=== PATIENT | female | born 1950 | race African-American/Black ===

== ENCOUNTER 2023-10-30 07:39 | Observation (INO) ==
[2023-10-30] MEDS ORDERED: Rocuronium 50 mg VIAL 10 mg/ml 5 ml VIAL (50 mg) ONE (08:33)
[2023-10-30] MEDS ORDERED: Phenylephrine IV 10 MG/ML 1 ml VIAL ONE (08:34)
[2023-10-30] MEDS ORDERED: Dexamethasone IV 4 MG/ML VIAL 1 ml VIAL ONE (08:34)
[2023-10-30] MEDS ORDERED: Lidocaine 2% PF 5 ML VIAL ONE (08:34)
[2023-10-30] MEDS ORDERED: Sterile Water for Inj 10 ML ONE (08:34)
[2023-10-30] MEDS ORDERED: Ondansetron 4 mg VIAL 2 MG/ML 2 ml VIAL ONE (08:34)
[2023-10-30] MEDS ORDERED: Midazolam 2 mg/2 ml VIAL 1 mg/ml 2 ml VIAL (2 mg) ONE ×2 (08:34→09:56)
[2023-10-30] MEDS ORDERED: Acetaminophen IV 1 GM/100ML 1,000 MG/100 ML BAG IV ONE (08:34)
[2023-10-30] MEDS ORDERED: fentaNYL 100 mcg/2 ml 50 MCG/ML VIAL ONE (08:34)
[2023-10-30] MEDS ORDERED: ceFAZolin 2 GM PREMIX 2 GM/50 ML BAG ONE (08:57)
[2023-10-30] MEDS ORDERED: Tranexamic Acid 1 GM/100ML BAG 2,000 MG/200 ML BAG IV ONE (08:57)
[2023-10-30] MEDS ORDERED: Buffered Lidocaine 1% SYRIN 1 ml ONE (09:28)
[2023-10-30 09:31] LABS: Rapid COVID-19 Molecular Undetected (Undetected)
[2023-10-30] MEDS ORDERED: ROPIVACAINE 5 MG/ML 30 ML BTL (0.5%) ONE ×2 (09:56→11:14)
[2023-10-30] MEDS ORDERED: Bupivacaine 0.5% PF 10 ML SDV VIAL INJ ONE (11:13)
[2023-10-30] MEDS ORDERED: Glycopyrrolate IV 0.2 MG/ML 1 ML VIAL ONE (11:30)
[2023-10-30] MEDS ORDERED: Magnesium Hydroxide LIQ 30 ML UDC PO PRN (13:27)
[2023-10-30] MEDS ORDERED: Ondansetron ODT 4 mg TAB 4 MG TAB PO PRN (13:27)
[2023-10-30] MEDS ORDERED: Ondansetron 4 mg VIAL 2 MG/ML 2 ml VIAL IV PRN (13:27)
[2023-10-30] MEDS ORDERED: Morphine 2 MG/ML SYRINGE IV PRN (13:27)
[2023-10-30] MEDS ORDERED: Lactulose 30 ml UDC PO PRN (13:27)
[2023-10-30] MEDS: Lactated Ringers 1000 ml BAG 1,000 ML IV SCH (18:07)
[2023-10-30] MEDS: ceFAZolin 1 GM ADVAN 1 GM in NS 0.9% 50 ML 50 ML IVPB SCH (19:59)
[2023-10-30] MEDS: Magnesium Hydroxide LIQ 30 ML UDC PO SCH (20:38)
[2023-10-31 06:06] LABS: Hematocrit 32.8 % (35-45); Hemoglobin 11.3 g/dL (11.5-14.3); Platelet Count 208 10^3/uL (150-450)
[2023-10-31 06:12] LABS: Calcium 8.8 mg/dL (8.6-10.3); Creatinine, Serum 0.77 mg/dL (0.51-0.95); Potassium 3.5 mmol/L (3.5-5.0); eGFR CKD-EPI 81.4 (>60)
[2023-10-31] MEDS: Vitamin THERAPEUTIC TAB PO SCH (10:32)
[2023-10-31] MEDS: Potassium Chlor 10 meq TAB PO SCH (10:32)
[2023-10-31] MEDS: Aspirin EC 81 mg TAB.EC (enteric coated) PO SCH (10:33)
== END 2023-10-31 12:15 | disposition home or self-care (01) ==
LOC: SSU 07:39 → OR 07:39 → EDSTATUS 12:30
PROVIDERS: ADMIT Orthopaedic Surgery Adult Reconstructive Orthopaedic Surgery; ATTEND Orthopaedic Surgery Adult Reconstructive Orthopaedic Surgery